=== PATIENT | male | born 1980 | race Caucasian/White ===

== ENCOUNTER 2017-12-14 10:57 | Emergency (ER) | payer BC ==
[2017-12-14 11:53] LABS: BASO % 0.5 % (0.0-1.0); EOS # 0.1 10^3/uL (0.0-0.50); EOS % 0.9 % (0.0-3.0); HEMATOCRIT 43.7 % (42.0-52.0); HEMOGLOBIN 15.2 g/dl (13.5-17.5); IMMATURE GRANULOCYTE % 0.3 % (0-3.0); LYMPH # 2.9 10^3/uL (1.5-4.5); LYMPH % 38.4 % (24.0-44.0); MEAN CORPUSCULAR HEMOGLOBIN 29.5 pg (27.0-33.0); MEAN CORPUSCULAR HGB CONC 34.8 g/dl (32.0-36.5); MEAN CORPUSCULAR VOLUME 84.7 fl (80.0-96.0); MONO # 0.5 10^3/uL (0.0-0.8); MONO % 7.1 % (0.0-5.0); NEUTROPHILS % 52.8 % (36.0-66.0); PLATELET COUNT, AUTOMATED 258 10^3/uL (150-450); RED BLOOD COUNT 5.16 10^6/uL (4.30-6.10); RED CELL DISTRIBUTION WIDTH 12.4 % (11.5-14.5); WHITE BLOOD COUNT 7.6 10^3/uL (4.0-10.0)
[2017-12-14 12:07] LABS: PROTHROMBIN TIME 13.3 SECONDS (12.4-14.5)
[2017-12-14 12:08] LABS: PARTIAL THROMBOPLASTIN TIME 30.5 SECONDS (26.8-37.9)
[2017-12-14 12:17] LABS: ANION GAP 8 MEQ/L (8-16); BLOOD UREA NITROGEN 19 MG/DL (7-18); CALCIUM LEVEL 9.1 MG/DL (8.5-10.1); CARBON DIOXIDE LEVEL 25 MEQ/L (21-32); CHLORIDE LEVEL 110 MEQ/L (98-107); CK-MB VALUE MASS 2.6 NG/ML (<3.6); CPK CREATINE PHOSPHOKINASE 167 U/L (39-308); CREATININE FOR GFR 1.26 MG/DL (0.70-1.30); GLOMERULAR FILTRATION RATE > 60.0 (>60); GLUCOSE, FASTING 88 MG/DL (70-100); MAGNESIUM LEVEL 2.3 MG/DL (1.8-2.4); MB/CK RELATIVE INDEX 1.55 (< OR =4); PHOSPHORUS LEVEL 2.2 MG/DL (2.5-4.9); POTASSIUM SERUM 4.3 MEQ/L (3.5-5.1); SODIUM LEVEL 143 MEQ/L (136-145); TROPONIN I 0.03 NG/ML (< 0.10)
[2017-12-14] MEDS: NS 1,000 ML IV (12:52)
== END 2017-12-14 14:12 | disposition home or self-care (01) ==
LOC: M ED 10:57
DX: I47.1 Supraventricular tachycardia (principal); E86.0 Dehydration; Z82.49 Family history of ischemic heart disease and other diseases of the circulatory system; Z79.899 Other long term (current) drug therapy; Z88.8 Allergy status to other drugs, medicaments and biological substances
CPT/HCPCS: 71046

== ENCOUNTER → 2017-12-17 | Outpatient (REF) | payer BC ==
[2017-12-17 18:05] LABS: CHOLESTEROL LEVEL 157 MG/DL (<200); CHOLESTEROL RISK RATIO 5.064 (<5); FREE T4 0.79 NG/DL (0.76-1.46); HDL CHOLESTEROL 31 MG/DL (>40); LDL CHOLESTEROL 72.4 MG/DL (<100); NON-HDL-C 126 MG/DL; TRIGLYCERIDES LEVEL 268 MG/DL (<150)
== END ==
LOC: M SFHCPLAZ 14:33
DX: I47.1 Supraventricular tachycardia (principal); Z13.220 Encounter for screening for lipoid disorders
CPT/HCPCS: 84443

== ENCOUNTER 2017-12-20 08:55 | Emergency (ER) | payer BC ==
[2017-12-22 00:08] LABS: Lyme Disease IgG/IgM Antibodie <0.91 ISR (0.00-0.90); Lyme Disease IgM Ab Quantitati <0.80 index (0.00-0.79)
== END 2017-12-20 13:31 | disposition home or self-care (01) ==
LOC: M ED 08:55
DX: G51.0 Bell's palsy (principal); Z86.79 Personal history of other diseases of the circulatory system; Z87.891 Personal history of nicotine dependence; Z88.4 Allergy status to anesthetic agent
CPT/HCPCS: 70551

== ENCOUNTER → 2018-09-27 | Outpatient (REF) | payer BC ==
[~2018-09-27] MED LIST: BACIOIN5 OP; LEVA500T OR; No Historical Meds; PERC5TAB8 OR; PRED20TA PO; VALA1TAB2 PO
[2018-09-27 19:30] LABS: CHOLESTEROL RISK RATIO 4.361 (<5)
== END ==
LOC: M SFHCPLAZ 10:41
PROVIDERS: ATTEND Physician Assistant Medical
DX: Z13.220 Encounter for screening for lipoid disorders (principal)

== ENCOUNTER → 2018-09-27 | Outpatient (CLI) | payer BC | LOC: M ADAMS 10:42 | PROVIDERS: ATTEND Physician Assistant Medical | DX: Z13.220 Encounter for screening for lipoid disorders (principal) ==

== ENCOUNTER 2020-12-12 18:38 | Emergency (ER) | payer BC, OTHER ==
[~2020-12-12] VITALS: Ht 177.8 cm; Wt 90.9 kg
[~2020-12-12 18:38] MED LIST changes: -VALA1TAB2 PO; +VALA1TAB5 PO
[2020-12-12 19:09] LABS: BASO % 0.5 % (0.0-1.0); EOS # 0.1 10^3/uL (0.0-0.5); EOS % 1.1 % (0.0-3.0); HEMATOCRIT 46.1 % (42.0-52.0); HEMOGLOBIN 15.5 g/dl (13.5-17.5); LYMPH % 37.4 % (24.0-44.0); MEAN CORPUSCULAR HEMOGLOBIN 28.6 pg (27.0-33.0); MEAN CORPUSCULAR HGB CONC 33.6 g/dl (32.0-36.5); MEAN CORPUSCULAR VOLUME 85.1 fl (80.0-96.0); MONO # 0.6 10^3/uL (0.0-0.8); MONO % 7.6 % (2.0-8.0); NEUTROPHILS # 4.2 10^3/uL (1.5-8.5); NEUTROPHILS % 53.1 % (36.0-66.0); PLATELET COUNT, AUTOMATED 276 10^3/uL (150-450); RED BLOOD COUNT 5.42 10^6/uL (4.30-6.10); WHITE BLOOD COUNT 7.9 10^3/uL (4.0-10.0)
--- NOTE | 2020-12-12 19:28 | REP ---
INDICATION: CHEST PAIN. COMPARISON: 12/14/2017 TECHNIQUE: Portable FINDINGS: The technique utilized in obtaining the radiograph has magnified the cardiac silhouette and accentuated the interstitial markings. The superior mediastinal structures are midline. The cardiac silhouette is unremarkable in size, shape, and position. The diaphragmatic surfaces of the lungs are regular, and the costophrenic angles are clear. The pulmonary cotto are clear. The imaged osseous structures are intact. IMPRESSION: There is no acute cardiopulmonary disease. <Electronically signed by Gibson Whitmore > 12/12/20 [id number]
[2020-12-12 19:36] LABS: BLOOD UREA NITROGEN 21 MG/DL (7-18); CALCIUM LEVEL 8.8 MG/DL (8.5-10.1); CARBON DIOXIDE LEVEL 25 MEQ/L (21-32); CHLORIDE LEVEL 107 MEQ/L (98-107); CK-MB VALUE MASS 1.9 NG/ML (<3.6); CPK CREATINE PHOSPHOKINASE 217 U/L (39-308); GLOMERULAR FILTRATION RATE > 60.0 (>60); GLUCOSE, FASTING 95 MG/DL (70-100); POTASSIUM SERUM 3.7 MEQ/L (3.5-5.1); SODIUM LEVEL 138 MEQ/L (136-145)
[2020-12-12 19:37] LABS: MB/CK RELATIVE INDEX 0.88 (< OR =4); TROPONIN I < 0.02 NG/ML (< 0.10)
[2020-12-12] MEDS ORDERED: atenoloL 50 MG TAB PO ONE (21:20)
[2020-12-12 21:28] VITALS: BP 131/96
[2020-12-12] MEDS ORDERED: ATEN50TA2 PO (21:51)
[2020-12-12 21:55] VITALS: BP 136/88
--- NOTE | 2020-12-13 20:52 | ECGEPIP ---
[facility] - ED Test Date: 2020-12-12 Pat Name: GAIL KRAMER Department: Room: - Gender: Male Blood Typer: JOSR : 1980 Requested By: ARAVIND Delgado Order Number: [id number] Reading MD: Elizabeth Jo Measurements Intervals [place] Rate: 81 P: 49 MD: 140 QRS: 20 QRSD: 80 T: 11 QT: 356 QTc: 413 Interpretive Statements Normal sinus rhythm Nonspecific T wave abnormality increased rate 12/20/17 Electronically Signed on 12-13-2020 20:51:50 EDT by Elizabeth Jo
== END 2020-12-12 22:05 | disposition home or self-care (01) ==
LOC: M ED 18:38 → EDBD 18:38 → M ED 22:05
DX: I47.1 Supraventricular tachycardia (principal); I10 Essential (primary) hypertension; Z79.899 Other long term (current) drug therapy

== ENCOUNTER → 2020-12-16 | Outpatient (REF) | payer OTHER ==
[~2020-12-16] MED LIST changes: +ATEN50TA2 PO
[2020-12-16 13:41] LABS: ALT/SGPT 53 U/L (12-78); BILIRUBIN,TOTAL 0.7 MG/DL (0.2-1.0); BLOOD UREA NITROGEN 18 MG/DL (7-18); CALCIUM LEVEL 9.6 MG/DL (8.5-10.1); CARBON DIOXIDE LEVEL 27 MEQ/L (21-32); CHLORIDE LEVEL 105 MEQ/L (98-107); CREATININE FOR GFR 1.22 MG/DL (0.70-1.30); GLOMERULAR FILTRATION RATE > 60.0 (>60); GLUCOSE, FASTING 95 MG/DL (70-100); POTASSIUM SERUM 4.3 MEQ/L (3.5-5.1); SODIUM LEVEL 138 MEQ/L (136-145)
[2020-12-16 13:42] LABS: ALBUMIN 4.4 GM/DL (3.2-5.2); CHOLESTEROL LEVEL 170 MG/DL (<200); CHOLESTEROL RISK RATIO 4.857 (<5); HDL CHOLESTEROL 35 MG/DL (>40); LDL CHOLESTEROL 102 MG/DL (<100); MAGNESIUM LEVEL 2.4 MG/DL (1.8-2.4); NON-HDL-C 135 MG/DL; TOTAL PROTEIN 7.5 GM/DL (6.4-8.2); TRIGLYCERIDES LEVEL 166 MG/DL (<150)
== END ==
LOC: M LABDRWAD 12:20
PROVIDERS: ATTEND Physician Assistant
DX: E78.2 Mixed hyperlipidemia (principal); I47.1 Supraventricular tachycardia